=== PATIENT | male | born 1995 | race Caucasian/White ===

== ENCOUNTER 2020-09-05 18:33 | Emergency (ER) | payer MEDICARE, MEDICAID, SELFPAY ==
[2020-09-05 19:04] VITALS: BP 119/60; PULSE 73; RESP 16; TEMP 37.1; O2SAT 98; BMI 21.4
--- NOTE | 2020-09-05 20:17 | ED_ITS ---
HPI - Skin/Abscess/Foreign Bdy General Chief complaint: Skin/Abscess/Foreign Body Stated complaint: finger abscess Time Seen by Provider: 09/05/20 20:01 Source: patient Mode of arrival: ambulatory Limitations: no limitations History of Present Illness HPI narrative: Right index finger swelling, redness and pain for 3 days. No injury or trauma. No fevers or chills. No difficulty bending or extending the finger. MD complaint: abscess/boil Onset (ago): day(s) Tetanus up to date: yes Location: R hand Severity: mild Quality: burning Pain Consistency: constant Relieving factors: none Exacerbating factors: none Context: none Associated symptoms: denies other symptoms Treatments prior to arrival: none Related Data Previous Rx's Medication Instructions Recorded cephalexin 500 mg PO TID #21 cap 09/05/20 Allergies Allergy/AdvReac Type Severity Reaction Status Date / Time ciprofloxacin [CIPROFLOXACIN] Allergy Unknown RASH Unverified 06/29/20 17:47 SEAFOOD Allergy Severe ANAPHYLAXIS Uncoded 06/29/20 17:47 Review of Systems Review of Systems: Yes all other systems are reviewed and are negative Constitutional: Constitutional: Reports no additional constitutional complaints, Denies body ache(s), Denies chills, Denies fever(s), Denies headache(s) and Denies weakness Eyes: Eyes: Reports no additional eye complaints and Denies change in vision ENT: Reports system reviewed and no additional complaints, except as documented, Denies dizziness, Denies headache(s), Denies nasal congestion, Denies nasal discharge and Denies neck pain Cardiovascular: Cardiovascular: Reports no additional cardiovascular complaints, Denies chest pain, Denies leg edema and Denies dyspnea Respiratory: Respiratory: Reports no additional respiratory complaints, Denies cough and Denies dyspnea Gastrointestinal: Gastrointestinal: Reports no additional gastrointestinal complaints, Denies abdominal pain, Denies diarrhea, Denies nausea and Denies vomiting Genitourinary: Genitourinary: Denies urinary incontinence Musculoskeletal: Musculoskeletal: Reports no additional musculoskeletal complaints, Denies back pain, Denies arthralgias, Denies joint swelling, Denies neck pain, Denies numbness and Denies tingling Integumentary/Breasts: Skin/Breast: Reports system reviewed and no additional complaints, except as docu and Denies rash Neurologic: Reports system reviewed and no additional complaints, except as documented, Denies Abnormal speech present, Denies dizziness, Denies headache(s ), Denies numbness, Denies tingling and Denies weakness PMFSH Past Medical History Attestation statement: The following information was validated with the patient. Source: old records reviewed and nursing notes reviewed Medical History No known health problems No known health problems Social History Social History Advance Directives: No Advance Directives Information Provided: Yes Physical Exam Vital Signs: Vital Signs: Last Vital Signs Temp 98.7 F 09/05/20 19:04 Pulse 73 09/05/20 19:04 Resp 16 09/05/20 19:04 BP 119/60 09/05/20 19:04 Pulse Ox 98 09/05/20 19:04 Body Mass Index 21.4 Const: General: cooperative, healthy appearing, comfortable and no acute distress Orientation/consciousness: patient oriented x3 Limitations: no limitations HENMT: Head: Yes normal to inspection Ears: hearing grossly normal bilaterally General nose exam: Normal external nose present Face and sinus: Yes normal facial exam Mouth: Normal oral and palatal mucosa present Throat: Yes posterior oropharynx normal Eyes: General: appearance normal, both eyes and all related structures Pupils: Equal, round and reactive pupils present Neck: Neck: Yes normal visual inspection Chest: Chest palpation & inspection: normal inspection of the chest Resp: Effort & Inspection: normal respiratory effort Auscultation: clear to auscultation bilaterally Cardio: Rate: regular rate Rhythm: regular rhythm Peripheral pulses: Peripheral pulses 2+ throughout GI: Inspection: Yes normal to inspection Palpation (GI): Soft to palpation and nontender Auscultation: normal bowel sounds Back/Spine/Pelvis: Thoracic/Lumbar Spine: thoracic and lumbar spine normal to inspection Skin: General skin exam: no rashes or lesions noted Neuro: General: patient oriented x3, no focal motor deficits and normal sensation to monofilament Cranial nerves: Yes Equal, round and reactive pupils present Cognition (Neuro): normal cognition Speech: No Abnormal speech present Gait exam (Neuro): Normal gait present Motor exam (neuro): 5/5 motor strength present throughout Extrem: Other: Just proximal to the nail bed there is surrounding erythema, swelling, fluctuance and tenderness. The patient is able to flex and extend the finger with no difficulty General: Yes normal to inspection Course Course Course Narrative: right index finger paronychia. See procedure note. Patient to be started on cephalexin. Reviewed worrisome signs and symptoms of when to return to the emergency department. Comfortable discharge home. Procedures Abscess I/D Site: hand ( Right index finger) Side (if applicable): right Technique: incised with blade Sent for culture/gram staining?: No Irrigation: No Packing used?: none Discharge Plan Discharge Clinical Impression: Paronychia Patient Disposition: Home, Self-Care Instructions: Paronychia (ED) Additional Instructions: warm soaks with Epson salts Start antibiotics as soon as possible Motrin or Tylenol as needed for pain Prescriptions: New cephalexin 500 mg capsule 500 mg PO TID Qty: 21 RF: 0 Referrals: Physician,Unknown [Primary Care Provider] - 2 days
== END 2020-09-05 21:07 | disposition home or self-care (01) ==
PROVIDERS: Emergency Provider Emergency Medicine
DX: L02.511 Cutaneous abscess of right hand (principal); L03.011 Cellulitis of right finger; M79.641 Pain in right hand
CPT/HCPCS: 26010; 99283

== ENCOUNTER 2021-02-02 12:26 | Outpatient (REF) | payer OTHER, SELFPAY ==
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
== END 2021-02-02 12:27 | disposition home or self-care (01) ==
LOC: HO.XRAY 12:26
PROVIDERS: PCP Internal Medicine; Visit Provider Internal Medicine
DX: M54.5 Low back pain (principal); M54.6 Pain in thoracic spine; M79.601 Pain in right arm; R07.81 Pleurodynia
CPT/HCPCS: 71101; 72072; 72110; 73090; 73110

== ENCOUNTER 2021-04-13 13:00 | Outpatient (RCR) | payer OTHER, MEDICARE, MEDICAID, SELFPAY | END 2021-05-31 08:20 | disposition home or self-care (01) | LOC: HO.PT 13:00 | PROVIDERS: PCP Internal Medicine; Visit Provider Internal Medicine | DX: M54.5 Low back pain (principal); V89.2XXA Person injured in unspecified motor-vehicle accident, traffic, initial encounter | CPT/HCPCS: 97014; 97110; 97112; 97140; 97162; 97530 ==

== ENCOUNTER 2022-11-27 13:47 | Outpatient (REF) | payer MEDICARE, MEDICAID, SELFPAY ==
--- NOTE | ~2022-11-27 | MM_ITS ---
EXAMINATION: MM DIAGNOSTIC DIGITAL BREAST TOMOSYNTHESIS, BILATERAL US DIAGNOSTIC ULTRASOUND BREAST, LEFT CLINICAL INFORMATION: 27-year-old male with pain left nipple with mild subareolar fullness. No prior breast imaging. No known family history breast cancer. COMPARISON: None (current study represents initial baseline exam). TECHNIQUE: Digital breast tomosynthesis is performed in both the craniocaudal and mediolateral oblique views along with computer-aided detection (CAD). Synthesized 2D images are generated from the tomosynthesis. Additional left MLO x2 views are obtained. Ultrasound left breast is targeted to the subareolar and periareolar region. Comparison imaging of the right is also performed at time of real-time imaging. Grayscale imaging and color Doppler are performed without and with harmonics. FINDINGS: There are scattered areas of fibroglandular density (ACR BI-RADS breast composition Category b). Breast tissue composition borders on predominantly fatty. There is mild gynecomastia type pattern anterior central breasts better appreciated on MLO views and slightly greater on left. There is no mass or architectural abnormality or abnormal calcifications. No skin thickening or coarsening of the stromal markings. There is incidental deodorant artifact overlying the left axilla. The axilla are unremarkable. Ultrasound demonstrates trace bilateral retroareolar gynecomastia, slightly greater on left corresponding to the mammography. There is no cystic or solid mass or architectural abnormality. No skin thickening or edema tracking in the soft tissue planes. No hyperemia. Results are discussed with the patient and family at time of visit with assistance of an water sander. MM/MM tomosynthesis diagnostic BI IMPRESSION: -Mild bilateral gynecomastia, slightly greater on left. ASSESSMENT: BI-RADS 2: Benign RECOMMENDATION: -Patient should be managed based on the clinical impression. -If symptoms are persistent or increasing, surgical consult may be considered for further evaluation.
== END 2022-11-27 13:48 | disposition home or self-care (01) ==
LOC: HO.MAMMO 13:47
PROVIDERS: Visit Provider Family Medicine
DX: N64.4 Mastodynia (principal); N63.42 Unspecified lump in left breast, subareolar
CPT/HCPCS: 76642; 77062; 77066